=== PATIENT | female | born 1970 | race Caucasian/White ===

== ENCOUNTER 2016-10-11 10:26 | Emergency (ER) | payer OTHER ==
[~2016-10-11] VITALS: Ht 170.2 cm; Wt 104.5 kg
[~2016-10-11 10:26] MED LIST: ASPI81TA3 PO; GEMF600T60 PO; LANT3I SC; LISI-313 PO; MTF1000T PO; NOVO3I SC
[2016-10-11 10:33] VITALS: Ht 170.2 cm; Wt 104.5 kg
[2016-10-11] MEDS ORDERED: RANI150T9 PO (11:53)
[2016-10-11] MEDS ORDERED: BEN25 PO (11:53)
[2016-10-11] MEDS ORDERED: PRED20TA PO (11:53)
--- NOTE | 2016-10-11 11:59 | ERD ---
ER Documentation Chief Complaint Date/Time DATE: 10/11/16 TIME: 11:58 Chief Complaint FACIAL REDNESS,SWELLING AND PAIN HPI 46-year-old female with history of type 2 diabetes comes in with facial redness and swelling after getting a wax done. She had her eyebrows as well as facial hair is wax subsequently left salon yesterday did not experience redness. She denies any shortness of breath, tongue swelling, lip swelling, voice changes or drooling. She denies any new foods, medications, lotions or allergens. This is the same salon that she has been to. ROS All systems reviewed and are negative except as per history of present illness. Medications Home Meds Active Scripts Ranitidine Hcl* (Zantac*) 150 Mg Tablet, 150 MG PO BID Y for EPIGASTRIC PAIN, # 10 TAB Prov:ANMOL DEVI PA-C 10/11/16 Diphenhydramine Hcl* (Benadryl*) 25 Mg Cap, 25 MG PO Q6, #30 CAP Prov:ANMOL DEVI PA-C 10/11/16 Prednisone* (Prednisone*) 20 Mg Tab, 40 MG PO DAILY for 4 Days, TAB Prov:ANMOL DEVI PA-C 10/11/16 Aspirin (Aspirin) 81 Mg Chew, 81 MG PO DAILY for 30 Days, TAB Prov:TEREZA MCKENZIE 06/11/16 Gemfibrozil* (Gemfibrozil*) 600 Mg Tablet, 600 MG PO BID for 30 Days, TAB Prov:TEREZA MCKENZIE 06/11/16 Insulin Glargine* (Lantus*) 100 Unit/Ml Soln, 27 UNIT SC QAM for 30 Days Prov:TEREZA MCKENZIE 06/11/16 Insulin Aspart* (Novolog Insulin Pen*) 100 Unit/Ml Soln, 10 UNIT SC WITH MEALS for 30 Days Prov:TEREZA MCKENZIE 06/11/16 Reported Medications Metformin* (Glucophage*) 1,000 Mg Tablet, 1000 MG PO BID, TAB 06/09/16 Lisinopril* (Lisinopril*) 5 Mg Tablet, 5 MG PO DAILY, TAB 06/09/16 Allergies Allergies: Coded Allergies: No Known Allergy (Unverified , 06/09/16) PMhx/Soc History of Surgery: Yes (Gallblader removed) Anesthesia Reaction: No Hx Neurological Disorder: No Hx Respiratory Disorders: Yes (asthma) Hx Cardiac Disorders: No Hx Psychiatric Problems: No Hx Miscellaneous Medical Probl: No Hx Alcohol Use: Yes (occasionally) Hx Substance Use: No Hx Tobacco Use: No Physical Exam Vitals Vital Signs Date Time Temp Pulse Resp B/P Pulse Ox O2 Delivery O2 Flow Rate FiO2 10/11/16 10:33 98.5 96 18 122/60 98 Physical Exam = General: Well-developed, well-nourished. The patient appears in no acute distress. HEENT: Head is normocephalic, atraumatic. No scleral icterus. Pupils are equal , round, and reactive. Oral mucous membranes are moist. No pharyngeal erythema. Neck: Supple. Nontender. Lungs: Clear to auscultation. Normal air movement. Heart: Regular rate and rhythm. S1 and S2 are normal. No murmurs, gallops, or rubs. Abdomen: Soft, nontender, nondistended. Bowel sounds are normoactive. Extremities: No clubbing or cyanosis. Normal pulses. Moving extremities x 4. No weakness. Neurologic: Alert and oriented 3. No focal deficits. Skin: Erythema, swelling localized to the forehead, and cheeks on the face. Results 24 hrs Current Medications Medications (Trade) Dose Ordered Sig/Sherita Route PRN Reason Start Time Stop Time Status Last Admin Dose Admin Prednisone (Prednisone) 40 mg ONCE ONCE PO 10/11/16 12:00 10/11/16 12:01 Ranitidine HCl (Zantac) 150 mg ONCE ONCE PO 10/11/16 12:00 10/11/16 12:01 Procedures/MDM 46-year-old female comes with contact dermatitis to face from the wax material that she use yesterday. No signs of any edema, persistent systemic response. Her vitals are stable, no edema noted patient will be discharged home. Departure Diagnosis: Primary Impression: Contact dermatitis Condition: Good Patient Instructions: Contact Dermatitis Additional Instructions: Call your primary care doctor TOMORROW for an appointment during the next 1-2 days.See the doctor sooner or return here if your condition worsens before your appointment time. ANMOL DEVI PA-C Oct 11, 2016 11:59
[2016-10-11] MEDS ORDERED: RANITIDINE 150 MG TAB PO ONE (12:00)
[2016-10-11] MEDS ORDERED: predniSONE 20 MG TAB PO ONE (12:00)
== END 2016-10-11 12:17 | disposition home or self-care (01) ==
LOC: FTE 10:26
DX: L25.9 Unspecified contact dermatitis, unspecified cause (principal); J45.909 Unspecified asthma, uncomplicated; E11.9 Type 2 diabetes mellitus without complications; Z79.4 Long term (current) use of insulin; Z79.82 Long term (current) use of aspirin; Z79.84 Long term (current) use of oral hypoglycemic drugs
CPT/HCPCS: J7512; Z7610; 99283

== ENCOUNTER 2017-02-23 07:17 | Emergency (ER) | payer OTHER ==
[~2017-02-23] VITALS: Ht 170.2 cm; Wt 106.0 kg
[~2017-02-23 07:17] MED LIST changes: +BEN25 PO; +GLIP5TAB13 PO; +PRED20TA PO; +RANI150T9 PO
[2017-02-23 07:21] VITALS: Ht 170.2 cm; Wt 106.0 kg
--- NOTE | 2017-02-23 08:07 | ERD ---
ER Documentation Chief Complaint Date/Time DATE: 02/23/17 TIME: 08:06 Chief Complaint sore throat and productive cough with dark green sputum since tuesday HPI 46-year-old female presented emergency department for sore throat, productive cough since Tuesday. Stated that she felt like she had a fever 2 days ago but she never took her temperature. Denies headache, loss of consciousness, dizziness, blurry vision, changes in vision, photophobia, facial pain, ear pain, difficulty swallowing, neck pain, shoulder pain, chest pain, hemoptysis, abdominal pain, back pain, loss of appetite, nausea, vomiting, hematochezia, diarrhea, constipation, urinary symptoms, , the possibility of being , bladder and bowel incontinences, extremity weakness, extremity tenderness, numbness or tingling sensation, difficulty walking, recent travel, recent exposure to illness, recent antibiotic use in the last 3 months, chills. Allergy: NKDA. PMH: Hypertension, diabetes, hyperlipidemia. Family medical history: Denies. with 3 miscarriages. LMP: "2 weeks ago." Medications: Lantus, aspirin, lisinopril, simvastatin, metformin, Humalog insulin. Surgery: Cholecystectomy. 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 Occasional drinks alcoholic beverages. Denies smoking, use of illegal drugs. ROS All systems reviewed and are negative except as per history of present illness. Medications Home Meds Active Scripts Albuterol Sulfate* (Proair HFA*) 8.5 Gm Hfa.aer.ad, 2 PUFF INH Q4, #1 INHALER Prov:ELVIE MELO 02/23/17 Acetaminophen* (Tylophen*) 500 Mg Capsule, 1 CAP PO Q6H Y for PAIN AND OR ELEVATED TEMP, #20 CAP Prov:ELVIE MELO 02/23/17 Ibuprofen* (Motrin*) 800 Mg Tab, 800 MG PO Q8 Y for PAIN AND OR ELEVATED TEMP, # 30 TAB Prov:ELVIE MELO 02/23/17 Azithromycin* (Zithromax*) 250 Mg Tablet, 250 MG PO .GretchenPACK DIRECTED, #6 TAB TAKE 500 MG (2 TABS) THE FIRST DAY THEN 250 MG (1 TAB) DAYS 2-5 Prov:ELVIE MELO 02/23/17 Ranitidine Hcl* (Zantac*) 150 Mg Tablet, 150 MG PO BID Y for EPIGASTRIC PAIN, # 10 TAB Prov:ANMOL DEVI PA-C 10/11/16 Diphenhydramine Hcl* (Benadryl*) 25 Mg Cap, 25 MG PO Q6, #30 CAP Prov:ANMOL DEVI PA-C 10/11/16 Prednisone* (Prednisone*) 20 Mg Tab, 40 MG PO DAILY for 4 Days, TAB Prov:ANMOL DEVI PA-C 10/11/16 Aspirin (Aspirin) 81 Mg Chew, 81 MG PO DAILY for 30 Days, TAB Prov:TEREZA MCKENZIE 06/11/16 Gemfibrozil* (Gemfibrozil*) 600 Mg Tablet, 600 MG PO BID for 30 Days, TAB Prov:TEREZA MCKENZIE 06/11/16 Insulin Glargine* (Lantus*) 100 Unit/Ml Soln, 27 UNIT SC QAM for 30 Days Prov:TEREZA MCKENZIE 06/11/16 Insulin Aspart* (Novolog Insulin Pen*) 100 Unit/Ml Soln, 10 UNIT SC WITH MEALS for 30 Days Prov:TEREZA MCKENZIE 06/11/16 Reported Medications Metformin* (Glucophage*) 1,000 Mg Tablet, 1000 MG PO BID, TAB 06/09/16 Lisinopril* (Lisinopril*) 5 Mg Tablet, 5 MG PO DAILY, TAB 06/09/16 Allergies Allergies: Coded Allergies: No Known Allergy (Unverified , 02/23/17) PMhx/Soc History of Surgery: Yes (Gallblader removed) Anesthesia Reaction: No Hx Neurological Disorder: No Hx Respiratory Disorders: Yes (asthma) Hx Cardiac Disorders: No Hx Psychiatric Problems: No Hx Miscellaneous Medical Probl: No Hx Alcohol Use: Yes (occasionally) Hx Substance Use: No Hx Tobacco Use: No Smoking Status: Never smoker Physical Exam Vitals Vital Signs Date Time Temp Pulse Resp B/P Pulse Ox O2 Delivery O2 Flow Rate FiO2 02/23/17 07:21 99.2 90 19 140/66 96 Physical Exam CONSTITUTIONAL: Well-appearing; well-nourished; in no apparent distress. HEAD: Normocephalic; atraumatic. EYES: Conjunctiva clear, sclera non-icteric, EOM intact. PERRL Ears: Hearing intact. EACs clear, TMs non-bulging, non-inflamed, translucent & mobile, ossicles normal appearance, No obstructions, no erythema, no discharges Nose: No obstructions. No polyps. No external lesions. Mucosa non-inflamed. No external lesions, septum and turbinates normal. No rhinorrhea. No discharges. Frontal sinus is non-tender to palpation. Maxillary sinus is non-tender to palpation. MOUTH: Moist mucous membranes, no lesion, no obstructions, no vesicles, no thrush, patent airway Throat: Uvula in midline. Right tonsil is +1 with no erythema, no exudate. Left tonsil is +1 with no erythema, no exudate. Tolerating secretions well. Good gag reflex. Patent airway. Neck: Supple, without lesions, bruits, or adenopathy. No mass. Thyroid non- enlarged and non-tender to palpation. CHEST: Symmetrical chest. Respirations even and not labored. No retractions noted. CARDIOVASCULAR: Normal S1, S2. RRR. No murmurs, gallops. RESPIRATORY: Normal chest excursion with respiration; breath sounds clear and equal bilaterally; no wheezes, rhonchi, or rales. Breathing even and unlabored. Speaking in clear, full, and complete sentences w/ ease. ABDOMEN: Normal bowel sounds normal. Soft, round, non-distended, non-guarding, no tenderness, no rebound, no organomegaly, no masses, no pulsating abdominal mass. No hernia. No peritoneal signs. : No CVA tenderness. BACK: Symmetrical shoulder. Spine is midline without deformity, tenderness. No evidence of trauma or deformity. PELVIS: Stable pelvis. No evidence of trauma or deformity. MUSCULOSKELETAL: Normal gait and station. No misalignment, asymmetry, crepitation, defects, tenderness, masses, effusions, decreased range of motion, instability, atrophy or abnormal strength or tone in the head, neck, spine, ribs , pelvis or extremities. No calf tenderness. NEUROVASCULAR: Distal pulses are present. Pedal pulse are present, equal, and normal. Capillary refills are < 2 seconds. NEUROLOGIC: Alert and oriented x4. Speaks full and clear sentences. Cranial Nerves II-XII normal. Sensation to pain, touch, and proprioception normal. Grossly unremarkable. No neurologic deficits. Romberg test is negative. PSYCHOLOGICAL: The patients mood and manner are appropriate. No hallucinations , delusions. Not SI. Not HI. Has the capacity to decide for self SKIN: Normal for age and ethnicity; warm; dry; good turgor; no apparent lesions or exudates. No rashes, hives, discoloration. Intact. Procedures/MDM Examination: Please see physical examination. Disease process, medical treatment was explained to the patient and family member. They verbalized understanding and agreed with the diagnostic tests, medical treatment, and follow-up care. Reevaluation: Alert and oriented 4. Speaks full and clear sentences. Denies headache, dizziness, blurred vision, neck pain, throat pain, difficulty swallowing, shoulder pain, chest pain, nausea. No episode of emesis in the emergency department. Respirations even and unlabored. Lungs are clear to auscultation. There is no abdominal tenderness. No neurovascular deficits. No neurological deficits. Differential diagnosis: Pneumonia versus bronchitis versus upper respiratory infection versus strep throat versus viral syndrome Medical decision makin-year-old female presented emergency department for sore throat, productive cough since Tuesday. Stated that she felt like she had a fever 2 days ago but she never took her temperature. Patient's complaint , patient's history about her complaint, my physical findings, my reevaluation are consistent with final diagnosis of bronchitis. Medications prescribed are the following: Azithromycin. Tylenol. Motrin. Pro- air. Patient and family member are made aware of the side effects and adverse reactions of the medications prescribed. Instructed on when to seek emergent and medical attention in case allergic/anaphylactic reactions or severe side effects and or adverse reactions to medications. Patient and family member verbalized understanding. Patient instructed Instructed to follow-up with his PCP in 24-48 hours. Instructed to Call 911 for chest pain, shortness of breath. Advised to come back here in ED as soon as possible for severity of symptoms which includes but not limited to: any new symptoms; shortness of breath/difficulty of breathing; cardiovascular changes; severe gastrointestinal symptoms; signs and symptoms of bleeding and or infection; signs of compartment syndrome/neurovascular changes; neurological changes/deficits. Patient and family member verbalized understanding. Upon discharge, patient is alert and oriented x 4, speaks full and clear sentences, denies pain, has no neurological deficits, has no neurovascular deficits, difficulty of breathing. Breathing even and unlabored. Lung sounds are clear to auscultation. Not in distress. Appears comfortable. Ambulatory with steady gait. Appears satisfied with care provided here in ED. Departure Diagnosis: Primary Impression: Acute bronchitis Condition: Good Additional Instructions: Instructed to follow-up with his PCP in 24-48 hours. Instructed to Call 911 for chest pain, shortness of breath. Advised to come back here in ED as soon as possible for severity of symptoms which includes but not limited to: any new symptoms; shortness of breath/difficulty of breathing; cardiovascular changes; severe gastrointestinal symptoms; signs and symptoms of bleeding and or infection; signs of compartment syndrome/neurovascular changes; neurological changes/deficits. Patient and family member verbalized understanding. ELVIE MELO Feb 23, 2017 08:07
[2017-02-23] MEDS ORDERED: AZIT250T94 PO (08:10)
[2017-02-23] MEDS ORDERED: ACET500C5 PO (08:11)
[2017-02-23] MEDS ORDERED: IBUP800T25 PO (08:11)
[2017-02-23] MEDS ORDERED: ALBU8.5H3 INH (08:12)
== END 2017-02-23 08:19 | disposition home or self-care (01) ==
LOC: FTE 07:17
DX: J20.9 Acute bronchitis, unspecified (principal); J45.909 Unspecified asthma, uncomplicated; E11.9 Type 2 diabetes mellitus without complications; I10 Essential (primary) hypertension; Z79.4 Long term (current) use of insulin; Z79.82 Long term (current) use of aspirin; Z79.84 Long term (current) use of oral hypoglycemic drugs
CPT/HCPCS: 99284

== ENCOUNTER 2017-03-08 20:49 | Emergency (ER) | payer OTHER ==
[~2017-03-08] VITALS: Ht 162.6 cm; Wt 106.5 kg
[~2017-03-08 20:49] MED LIST changes: +ACET500C5 PO; +ALBU8.5H3 INH; +AZIT250T94 PO; -GLIP5TAB13 PO; +IBUP800T25 PO
[2017-03-08 20:53] VITALS: Ht 162.6 cm; Wt 106.5 kg
[2017-03-08] MEDS ORDERED: PRED20TA PO (22:14)
--- NOTE | 2017-03-08 22:18 | ERD ---
ER Documentation Chief Complaint Date/Time DATE: 03/08/17 TIME: 22:16 Chief Complaint cough x 2 weeks HPI This a 46-year-old female who is complaining of a cough for 2 weeks. She was seen here at the onset of the illness and she was given a Z-Kiran and inhaler. She says she is only use the inhaler a few times. She says she took a Z-Kiran and her sputum became green to a light summers color now. She has no fevers but she says she is having off-and-on chills. No chest pain or shortness of breath. She is diabetic and her blood sugars been running between 130 and 140. ROS All systems reviewed and are negative except as per history of present illness. Medications Home Meds Active Scripts Prednisone* (Prednisone*) 20 Mg Tab, 40 MG PO DAILY for 4 Days, TAB Prov:NATHANIEL EDEN DO 03/08/17 Albuterol Sulfate* (Proair HFA*) 8.5 Gm Hfa.aer.ad, 2 PUFF INH Q4, #1 INHALER Prov:ELVIE MELO 02/23/17 Acetaminophen* (Tylophen*) 500 Mg Capsule, 1 CAP PO Q6H Y for PAIN AND OR ELEVATED TEMP, #20 CAP Prov:ELVIE MELO 02/23/17 Ibuprofen* (Motrin*) 800 Mg Tab, 800 MG PO Q8 Y for PAIN AND OR ELEVATED TEMP, # 30 TAB Prov:KAMERONHUMBLESU Peres 02/23/17 Azithromycin* (Zithromax*) 250 Mg Tablet, 250 MG PO .GretchenPACK DIRECTED, #6 TAB TAKE 500 MG (2 TABS) THE FIRST DAY THEN 250 MG (1 TAB) DAYS 2-5 Prov:ELVIE MELO 02/23/17 Ranitidine Hcl* (Zantac*) 150 Mg Tablet, 150 MG PO BID Y for EPIGASTRIC PAIN, # 10 TAB Prov:ANMOL DEVI PA-C 10/11/16 Diphenhydramine Hcl* (Benadryl*) 25 Mg Cap, 25 MG PO Q6, #30 CAP Prov:ANMOL DEVI PA-C 10/11/16 Prednisone* (Prednisone*) 20 Mg Tab, 40 MG PO DAILY for 4 Days, TAB Prov:ANMOL DEVI PA-C 10/11/16 Aspirin (Aspirin) 81 Mg Chew, 81 MG PO DAILY for 30 Days, TAB Prov:REGIDOTEREZA Heck 06/11/16 Gemfibrozil* (Gemfibrozil*) 600 Mg Tablet, 600 MG PO BID for 30 Days, TAB Prov:REGIDORTEREZA 06/11/16 Insulin Glargine* (Lantus*) 100 Unit/Ml Soln, 27 UNIT SC QAM for 30 Days Prov:TEREZA MCKENZIE 06/11/16 Insulin Aspart* (Novolog Insulin Pen*) 100 Unit/Ml Soln, 10 UNIT SC WITH MEALS for 30 Days Prov:TEREZA MCKENZIE 06/11/16 Reported Medications Metformin* (Glucophage*) 1,000 Mg Tablet, 1000 MG PO BID, TAB 06/09/16 Lisinopril* (Lisinopril*) 5 Mg Tablet, 5 MG PO DAILY, TAB 06/09/16 Allergies Allergies: Coded Allergies: No Known Allergy (Unverified , 02/23/17) PMhx/Soc History of Surgery: Yes (Gallblader, gallstones removed) Anesthesia Reaction: No Hx Neurological Disorder: No Hx Respiratory Disorders: Yes (asthma, bronchitis) Hx Cardiac Disorders: No Hx Psychiatric Problems: No Hx Miscellaneous Medical Probl: No Hx Alcohol Use: Yes (occasionally) Hx Substance Use: No Hx Tobacco Use: No Smoking Status: Never smoker FmHx Family History: No coronary disease Physical Exam Vitals Vital Signs Date Time Temp Pulse Resp B/P Pulse Ox O2 Delivery O2 Flow Rate FiO2 03/08/17 20:53 98.6 122 20 133/57 98 Physical Exam Const: Well-developed, well-nourished Head: Atraumatic, normocephalic Eyes: Normal Conjunctiva, PERRLA, EOMI, normal sclera, no nystagmus ENT: Normal External Ears, Nose and Mouth, moist mucus membranes. Neck: Full range of motion. No meningismus, no lymphadenopathy. Resp: Clear to auscultation bilaterally, no wheezing, rhonchi, rales Cardio: Regular rate and rhythm, no murmurs, S1 S2 present Abd: Soft, non tender x 4, non distended. Normal bowel sounds, no guarding or rebound, no pulsitile abdominal masses or bruits Skin: No petechiae or rashes, no ecchymosis , no maculopapular rash Back: No midline or flank tenderness Ext: No cyanosis, or edema, FROM x 4, normal inspection, neurovascularly intact x 4 Neur: Awake and alert, STR 5/5 x 4, sensation intact x 4, no focal findings, cerebellum intact Psych: Normal Mood and Affect Procedures/MDM Patient likely has a viral illness I will not use antibiotics again but uses low -dose prednisone and have her use her inhaler every 4 hours for the next few days. Departure Diagnosis: Primary Impression: Acute bronchitis Bronchitis organism: unspecified organism Qualified Code: J20.9 - Acute bronchitis, unspecified organism Condition: Stable Patient Instructions: What Is Bronchitis? Referrals: [facility] (PCP) NATHANIEL EDEN DO Mar 08, 2017 22:17
== END 2017-03-08 22:40 | disposition home or self-care (01) ==
LOC: FTE 20:49
DX: J20.9 Acute bronchitis, unspecified (principal); E11.9 Type 2 diabetes mellitus without complications; J45.909 Unspecified asthma, uncomplicated; Z79.84 Long term (current) use of oral hypoglycemic drugs; Z79.4 Long term (current) use of insulin; Z79.82 Long term (current) use of aspirin
CPT/HCPCS: 99283

== ENCOUNTER 2017-03-10 17:41 | Emergency (ER) | payer OTHER ==
[~2017-03-10] VITALS: Ht 172.7 cm; Wt 10.0 kg
[2017-03-10 17:46] VITALS: Ht 172.7 cm; Wt 10.0 kg
[2017-03-10] MEDS ORDERED: MECLIZINE 12.5 MG TAB PO ONE (19:30)
[2017-03-10 19:35] LABS: ADD UMIC YES; UR ASCORBIC ACID NEGATIVE (NEGATIVE); UR BACTERIA FEW /HPF (NONE SEEN); UR BILIRUBIN (Dip) NEGATIVE (NEGATIVE); UR BLOOD (Dip) 2+ mg/dL (NEGATIVE); UR CLARITY CLEAR (CLEAR); UR COLOR STRAW (YELLOW); UR GLUCOSE (Dip) 3+ mg/dL (NEGATIVE); UR KETONES (Dip) 1+ mg/dL (NEGATIVE); UR LEUKOCYTE ESTERASE (Dip) 1+ Leu/ul (NEGATIVE); UR NITRITE (Dip) NEGATIVE (NEGATIVE); UR RBC 1 /HPF (0-5); UR SPECIFIC GRAVITY (Dip) 1.008 (1.003-1.030); UR SQUAMOUS EPITHELIAL CELL FEW /HPF (FEW); UR TOTAL PROTEIN (Dip) NEGATIVE (NEGATIVE); UR UROBILINOGEN (Dip) NEGATIVE (NEGATIVE)
[2017-03-10 19:42] LABS: BASOPHIL # 0.1 10^3/ul (0.0-0.1); BASOPHILS % 0.8 % (0.0-2.0); EOSINOPHILS # 0.1 10^3/ul (0.0-0.5); EOSINOPHILS % 1.2 % (0.0-7.0); HEMATOCRIT 42.1 % (37.0-47.0); HEMOGLOBIN 14.1 g/dl (12.0-16.0); LYMPHOCYTES # 2.5 10^3/ul (0.8-2.9); MEAN CORPUSCULAR HEMOGLOBIN 26.7 pg (29.0-33.0); MEAN CORPUSCULAR HGB CONC 33.5 g/dl (32.0-37.0); MEAN CORPUSCULAR VOLUME 79.6 fl (82.0-101.0); MEAN PLATELET VOLUME 10.8 fl (7.4-10.4); MONOCYTE # 0.5 10^3/ul (0.3-0.9); MONOCYTES % 5.4 % (0.0-11.0); NEUTROPHIL # 6.6 10^3/ul (1.6-7.5); NEUTROPHILS % 66.9 % (39.0-77.0); PLATELET COUNT 444 10^3/UL (140-415); RED BLOOD COUNT 5.29 10^6/ul (4.20-5.40); RED CELL DISTRIBUTION WIDTH 13.5 % (11.5-14.5); WHITE BLOOD COUNT 9.8 10^3/ul (4.8-10.8)
[2017-03-10 20:01] LABS: ALBUMIN 4.9 g/dl (3.3-4.9); ALBUMIN/GLOBULIN RATIO 1.48; BILIRUBIN,INDIRECT 0.5 mg/dl (0-1.1); BILIRUBIN,TOTAL 0.5 mg/dl (0.2-1.3); CALCIUM 10.2 mg/dl (8.4-10.2); CREATININE 0.53 mg/dl (0.44-1.00); POTASSIUM 3.9 mmol/L (3.5-5.1); TOTAL PROTEIN 8.2 g/dl (6.1-8.1)
[2017-03-10] MEDS ORDERED: CEPH-443 PO (20:10)
[2017-03-10] MEDS ORDERED: MECL12.574 PO (20:10)
[2017-03-10 20:45] VITALS: BP 132/62; PULSE 90; RESP 18; TEMP 98.4
--- NOTE | 2017-03-10 23:26 | ERD ---
ER Documentation Chief Complaint Date/Time DATE: 03/10/17 TIME: 23:23 Chief Complaint Complains of dizziness HPI This patient is a 46-year-old female presenting to the emergency department with complaints of vertigo which began today. She states she felt it earlier today and then drove to the hospital. As she was getting out of her car at the hospital she felt an episode of "the world spinning." She was then helped out by security intern of the hospital and was brought into the emergency department by wheelchair. She states her feelings of vertigo have currently resolved. She did recently have bronchitis but the symptoms have resolved as well. She denies nausea, vomiting, diarrhea, fevers, loss of consciousness, head injury, or other symptoms currently. ROS All systems reviewed and are negative except as per history of present illness. Medications Home Meds Active Scripts Meclizine Hcl* (Antivert*) 12.5 Mg Tab, 12.5 MG PO Q6H Y for DIZZINESS, #20 TAB Prov:ROMEL PATINO PA-C 03/10/17 Cephalexin* (Keflex*) 500 Mg Capsule, 500 MG PO TID for 7 Days, #21 CAP Prov:ROMEL PATINO PA-C 03/10/17 Prednisone* (Prednisone*) 20 Mg Tab, 40 MG PO DAILY for 4 Days, TAB Prov:NATHANIEL EDEN DO 03/08/17 Albuterol Sulfate* (Proair HFA*) 8.5 Gm Hfa.aer.ad, 2 PUFF INH Q4, #1 INHALER Prov:ELVIE MELO 02/23/17 Acetaminophen* (Tylophen*) 500 Mg Capsule, 1 CAP PO Q6H Y for PAIN AND OR ELEVATED TEMP, #20 CAP Prov:ELVIE MELO 02/23/17 Ibuprofen* (Motrin*) 800 Mg Tab, 800 MG PO Q8 Y for PAIN AND OR ELEVATED TEMP, # 30 TAB Prov:ELVIE MELO 02/23/17 Azithromycin* (Zithromax*) 250 Mg Tablet, 250 MG PO .SANTI DIRECTED, #6 TAB TAKE 500 MG (2 TABS) THE FIRST DAY THEN 250 MG (1 TAB) DAYS 2-5 Prov:ELVIE MELO 02/23/17 Ranitidine Hcl* (Zantac*) 150 Mg Tablet, 150 MG PO BID Y for EPIGASTRIC PAIN, # 10 TAB Prov:ANMOL DEVI PA-C 10/11/16 Diphenhydramine Hcl* (Benadryl*) 25 Mg Cap, 25 MG PO Q6, #30 CAP Prov:ANMOL DEVI PA-C 10/11/16 Prednisone* (Prednisone*) 20 Mg Tab, 40 MG PO DAILY for 4 Days, TAB Prov:ANMOL DEVI PA-C 10/11/16 Aspirin (Aspirin) 81 Mg Chew, 81 MG PO DAILY for 30 Days, TAB Prov:TEREZA MCKENZIE 06/11/16 Gemfibrozil* (Gemfibrozil*) 600 Mg Tablet, 600 MG PO BID for 30 Days, TAB Prov:TEREZA MCKENZIE 06/11/16 Insulin Glargine* (Lantus*) 100 Unit/Ml Soln, 27 UNIT SC QAM for 30 Days Prov:TEREZA MCKENZIE 06/11/16 Insulin Aspart* (Novolog Insulin Pen*) 100 Unit/Ml Soln, 10 UNIT SC WITH MEALS for 30 Days Prov:TEREZA MCKENZIE 06/11/16 Reported Medications Metformin* (Glucophage*) 1,000 Mg Tablet, 1000 MG PO BID, TAB 06/09/16 Lisinopril* (Lisinopril*) 5 Mg Tablet, 5 MG PO DAILY, TAB 06/09/16 Allergies Allergies: Coded Allergies: No Known Allergy (Unverified , 02/23/17) PMhx/Soc Medical and Surgical Hx: pt denies Medical Hx, pt denies Surgical Hx History of Surgery: Yes (Gallblader, gallstones removed) Anesthesia Reaction: No Hx Neurological Disorder: No Hx Respiratory Disorders: Yes (asthma, bronchitis) Hx Cardiac Disorders: No Hx Psychiatric Problems: No Hx Miscellaneous Medical Probl: No Hx Alcohol Use: Yes (occasionally) Hx Substance Use: No Hx Tobacco Use: No Smoking Status: Never smoker Physical Exam Vitals Vital Signs Date Time Temp Pulse Resp B/P Pulse Ox O2 Delivery O2 Flow Rate FiO2 03/10/17 20:45 98.4 99 18 132/62 99 Room Air 90 03/10/17 19:21 94 128/67 90 141/68 98 144/68 03/10/17 17:46 98.4 107 20 176/82 99 Physical Exam Const: Nontoxic, well-appearing female in no acute distress. Head: Atraumatic Eyes: Normal Conjunctiva ENT: Normal External Ears, Nose and Mouth. Neck: Full range of motion..~ No meningismus. Resp: Clear to auscultation bilaterally Cardio: Regular rate and rhythm, no murmurs Abd: Soft, non tender, non distended. Normal bowel sounds Skin: No petechiae or rashes Back: No midline or flank tenderness Ext: No cyanosis, or edema Neur: Awake and alert. Negative Romberg's test. Cranial nerves intact. Strength and sensation intact in bilateral upper and lower extremity's. No pronator drift noted. Psych: Normal Mood and Affect Result Diagram: 03/10/17192903/10/171929 Results 24 hrs Laboratory Tests Test 03/10/17 18:18 03/10/17 19:30 Urine Color STRAW Urine Clarity CLEAR Urine pH 7.0 Urine Specific [place] 1.008 Urine Ketones 1+mg/dL Urine Nitrite NEGATIVEmg/dL Urine Bilirubin NEGATIVEmg/dL Urine Urobilinogen NEGATIVEmg/dL Urine Leukocyte Esterase 1+Kris/ul Urine Microscopic RBC 1/HPF Urine Microscopic WBC 7/HPF Urine Squamous Epithelial Cells FEW/HPF Urine Bacteria FEW/HPF Urine Hemoglobin 2+mg/dL Urine Glucose 3+mg/dL Urine Total Protein NEGATIVEmg/dl White Blood Count 9.810^3/ul Red Blood Count 5.2910^6/ul Hemoglobin 14.1g/dl Hematocrit 42.1% Mean Corpuscular Volume 79.6fl Mean Corpuscular Hemoglobin 26.7pg Mean Corpuscular Hemoglobin Concent 33.5g/dl Red Cell Distribution Width 13.5% Platelet Count 45313^3/UL Mean Platelet Volume 10.8fl Neutrophils % 66.9% Lymphocytes % 25.0% Monocytes % 5.4% Eosinophils % 1.2% Basophils % 0.8% Nucleated Red Blood Cells % 0.0/100WBC Neutrophils # 6.610^3/ul Lymphocytes # 2.510^3/ul Monocytes # 0.510^3/ul Eosinophils # 0.110^3/ul Basophils # 0.110^3/ul Nucleated Red Blood Cells # 0.010^3/ul Sodium Level 136mmol/L Potassium Level 3.9mmol/L Chloride Level 99mmol/L Carbon Dioxide Level 27mmol/L Anion Gap 14 Blood Urea Nitrogen 11mg/dl Creatinine 0.53mg/dl Glucose Level 112mg/dl Calcium Level 10.2mg/dl Total Bilirubin 0.5mg/dl Direct Bilirubin 0.00mg/dl Indirect Bilirubin 0.5mg/dl Aspartate Amino Transf (AST/SGOT) 20IU/L Alanine Aminotransferase (ALT/SGPT) 43IU/L Alkaline Phosphatase 120IU/L Total Protein 8.2g/dl Albumin 4.9g/dl Globulin 3.30g/dl Albumin/Globulin Ratio 1.48 Current Medications Medications (Trade) Dose Ordered Sig/Sherita Route PRN Reason Start Time Stop Time Status Last Admin Dose Admin Meclizine HCl (Antivert) 12.5 mg ONCE ONCE PO 03/10/17 19:30 03/10/17 19:31 DC 03/10/17 19:24 Procedures/MDM EMERGENCY DEPARTMENT COURSE / MEDICAL DECISION MAKING: This is a 46-year-old female who comes to the emergency room secondary to complaints of vertigo. The patient was given p.o. meclizine in the department. On re-evaluation, the patient was feeling improved. EKG: Interpreted by Dr. José Manuel Hollis, attending ED physician. Rate/Rhythm: Normal sinus rhythm with a rate of [address] bpm[address] QRS, ST, T-waves: No changes consistent w/ acute ischemia Impression: No evidence of ischemia or arrhythmia Lab results reviewed. CBC: No significant acute abnormalities. Chemistry: No significant acute abnormalities. UA: Concerning for mild urinary tract infection. Orthostatic vital signs: Within normal limits. The primary diagnosis is urinary tract infection. Secondary diagnosis is dizziness I have low suspicion for intracranial hemorrhage, intracranial mass, CVA, TIA, or other emergent conditions at this time. Dizziness may be secondary to urinary tract infection, or unknown etiology. She is to follow-up closely with her primary care physician for further workup as an outpatient. Life- threatening emergencies were ruled out in the department with the workup. Discharge: I have discussed the lab results and diagnostic findings with the patient and answered any questions or concerns. The patient was discharged with a prescription for meclizine. The patient was advised to followup with their PMD in 1-2 days and to return to the Emergency Department if there are any new or worsening symptoms. The patient understood and agreed with the diagnosis, treatment and plan. The patient is stable for discharge at this time. Departure Diagnosis: Primary Impression: Urinary tract infection Additional Impression: Dizziness Condition: Fair Patient Instructions: Understanding Urinary Tract Infections (UTIs), Inner Ear Problems: Causes of Dizziness (Vertigo), Dizziness (Vertigo) and Balance Problems: Ensuring Your Safety Additional Instructions: Follow up with your PCP within the next 1-3 days for a repeat evaluation and a possible referral to a specialist, if required. Return the the emergency department immediately if symptoms worsen or change. If you have any questions regarding medications, ask your pharmacist or us before you leave. If any adverse reactions, occur while taking your medications, discontinue the treatment and return to the emergency department immediately. If any new or worsening symptoms, uncontrolled fevers, or other unexplained symptoms occur, return to the emergency department immediately. Take your medications as directed, and complete the entire course of treatment. ROMEL APTINO PA-C Mar 10, 2017 23:26
== END 2017-03-10 20:46 | disposition home or self-care (01) ==
LOC: FTE 17:41
DX: N39.0 Urinary tract infection, site not specified (principal); J45.909 Unspecified asthma, uncomplicated; E11.9 Type 2 diabetes mellitus without complications; Z79.4 Long term (current) use of insulin; Z79.82 Long term (current) use of aspirin; Z79.84 Long term (current) use of oral hypoglycemic drugs
CPT/HCPCS: 36415; 80053; 81001; 85025; 87086; 93005; Z7502; Z7610

== ENCOUNTER 2017-05-18 08:43 | Emergency (ER) | payer OTHER ==
[~2017-05-18] VITALS: Ht 170.2 cm; Wt 106.5 kg
[~2017-05-18 08:43] MED LIST changes: +CEPH-443 PO; +MECL12.574 PO
[2017-05-18 08:51] VITALS: Ht 170.2 cm; Wt 106.5 kg
[2017-05-18] MEDS ORDERED: LORA1TAB54 PO (09:35)
[2017-05-18] MEDS ORDERED: AMOX1TAB9 PO (09:35)
--- NOTE | 2017-05-18 09:38 | ERD ---
ER Documentation Chief Complaint Date/Time DATE: 05/18/17 TIME: 09:37 Chief Complaint bilateral ear pain with sore throat fever for 4 days HPI 47-year-old female presents the emergency department complaining of upper respiratory nasal congestion, sinus congestion, low-grade fever and, bilateral ear pain for the last 4 days. She reports cough with no difficulty breathing. ROS All systems reviewed and are negative except as per history of present illness. Medications Home Meds Active Scripts Amoxicillin/Potassium Clav (Amox-Clav 500-125 mg Tablet) 500-125 mg Tab, 1 TAB PO BID for 7 Days, #14 TAB Prov:GLADIS MCARTHUR 05/18/17 Loratadine/Pseudoephedrine* (Claritin-D* 12 Hr) 5-120 Mg Tab.er.12h, 1 TAB PO Q12, #60 TAB.SA Prov:GLADIS MCARTHUR 05/18/17 Meclizine Hcl* (Antivert*) 12.5 Mg Tab, 12.5 MG PO Q6H Y for DIZZINESS, #20 TAB Prov:ROMEL PATINO PA-C 03/10/17 Cephalexin* (Keflex*) 500 Mg Capsule, 500 MG PO TID for 7 Days, #21 CAP Prov:ROMEL PATINO PA-C 03/10/17 Prednisone* (Prednisone*) 20 Mg Tab, 40 MG PO DAILY for 4 Days, TAB Prov:NATHANIEL EDEN DO 03/08/17 Albuterol Sulfate* (Proair HFA*) 8.5 Gm Hfa.aer.ad, 2 PUFF INH Q4, #1 INHALER Prov:ELVIE MELO 02/23/17 Acetaminophen* (Tylophen*) 500 Mg Capsule, 1 CAP PO Q6H Y for PAIN AND OR ELEVATED TEMP, #20 CAP Prov:ELVIE MELO 02/23/17 Ibuprofen* (Motrin*) 800 Mg Tab, 800 MG PO Q8 Y for PAIN AND OR ELEVATED TEMP, # 30 TAB Prov:ELVIE MELO 02/23/17 Azithromycin* (Zithromax*) 250 Mg Tablet, 250 MG PO .SANTI DIRECTED, #6 TAB TAKE 500 MG (2 TABS) THE FIRST DAY THEN 250 MG (1 TAB) DAYS 2-5 Prov:ELVIE MELO 02/23/17 Ranitidine Hcl* (Zantac*) 150 Mg Tablet, 150 MG PO BID Y for EPIGASTRIC PAIN, # 10 TAB Prov:ANMOL DEVI PA-C 10/11/16 Diphenhydramine Hcl* (Benadryl*) 25 Mg Cap, 25 MG PO Q6, #30 CAP Prov:ANMOL DEVI PA-C 10/11/16 Prednisone* (Prednisone*) 20 Mg Tab, 40 MG PO DAILY for 4 Days, TAB Prov:ANMOL DEVI PA-C 10/11/16 Aspirin (Aspirin) 81 Mg Chew, 81 MG PO DAILY for 30 Days, TAB Prov:REGTEREZA RANKIN 06/11/16 Gemfibrozil* (Gemfibrozil*) 600 Mg Tablet, 600 MG PO BID for 30 Days, TAB Prov:TEREZA MCKENZIE 06/11/16 Insulin Glargine* (Lantus*) 100 Unit/Ml Soln, 27 UNIT SC QAM for 30 Days Prov:TEREZA MCKENZIE 06/11/16 Insulin Aspart* (Novolog Insulin Pen*) 100 Unit/Ml Soln, 10 UNIT SC WITH MEALS for 30 Days Prov:TEREZA MCKENZIE 06/11/16 Reported Medications Metformin* (Glucophage*) 1,000 Mg Tablet, 1000 MG PO BID, TAB 06/09/16 Lisinopril* (Lisinopril*) 5 Mg Tablet, 5 MG PO DAILY, TAB 06/09/16 Allergies Allergies: Coded Allergies: No Known Allergy (Unverified , 05/18/17) PMhx/Soc History of Surgery: Yes (Gallblader, gallstones removed) Anesthesia Reaction: No Hx Neurological Disorder: No Hx Respiratory Disorders: Yes (asthma, bronchitis) Hx Cardiac Disorders: No Hx Psychiatric Problems: No Hx Miscellaneous Medical Probl: No Hx Alcohol Use: Yes (occasionally) Hx Substance Use: No Hx Tobacco Use: No FmHx Noncontributory for chief complaint Physical Exam Vitals Vital Signs Date Time Temp Pulse Resp B/P Pulse Ox O2 Delivery O2 Flow Rate FiO2 05/18/17 08:51 98.1 86 18 148/75 98 Physical Exam GENERAL: The patient is well developed and appropriate for usual state of health in no apparent distress HEENT: Pupils equal, round, and reactive to light. EOMI. There is no scleral icterus. Patient is a bilateral otitis media with the right worse than the left NECK: C-spine is soft and supple, there is no meningismus. There is no cervical lymphadenopathy. LUNGS: Clear to auscultation bilaterally. There are no rales, wheezes or rhonchi. HEART: Regular rate and rhythm, no murmurs, clicks, rubs or gallops. Procedures/MDM Patient was taken to a room, seen and examined Medical decision makin-year-old diabetic female presents to the emergency department with sinusitis and bilateral otitis media. Given her diabetes, she will be placed on antibiotics. At this time, she appears to be nontoxic and appropriate for outpatient supportive care. Departure Diagnosis: Primary Impression: Otitis media Additional Impression: Sinusitis Condition: Stable Patient Instructions: Otitis Media, Abx Tx (Adult) Additional Instructions: Please watch your blood sugar carefully. See your doctor if not better in the next 2 days. Return for any concerns GLADIS MCARTHUR May 18, 2017 09:38
== END 2017-05-18 10:15 | disposition home or self-care (01) ==
LOC: FTE 08:43
DX: H66.93 Otitis media, unspecified, bilateral (principal); J32.9 Chronic sinusitis, unspecified; J45.909 Unspecified asthma, uncomplicated; Z79.4 Long term (current) use of insulin; Z79.82 Long term (current) use of aspirin; Z79.84 Long term (current) use of oral hypoglycemic drugs
CPT/HCPCS: 99283

== ENCOUNTER 2017-07-23 15:41 | Emergency (ER) | payer OTHER ==
[~2017-07-23] VITALS: Ht 157.5 cm; Wt 107.2 kg
[~2017-07-23 15:41] MED LIST changes: +AMOX1TAB9 PO; +LORA1TAB54 PO
[2017-07-23 15:45] VITALS: Ht 157.5 cm; Wt 107.2 kg
[2017-07-23] MEDS ORDERED: LIDOCAINE 1% (MDV) 20 ML INJ SC ONE (16:00)
[2017-07-23] MEDS ORDERED: IBUP-1542 PO (17:33)
[2017-07-23] MEDS ORDERED: CEPH-443 PO (17:33)
[2017-07-23] MEDS ORDERED: SULF1TAB31 PO (17:33)
--- NOTE | 2017-07-23 18:19 | ERD ---
ER Documentation Chief Complaint Chief Complaint Complains of abscess to the groin HPI 47-year-old female patient with a past medical history of diabetes presents to the ED complaining of abscess in the left side of her groin. Reports that she noticed it 3 days ago. States that it feels like it is getting bigger. Denies any fever, chills, nausea, vomiting, diarrhea, abdominal pain, melena, bloody stools, hematemesis. Denies any dysuria, urgency, frequency, hematuria, vaginal discharge. ROS All systems reviewed and are negative except as per history of present illness. Medications Home Meds Active Scripts Ibuprofen* (Motrin*) 600 Mg Tab, 600 MG PO Q6, #30 TAB Prov:RAPHAEL FERREIRA PA-C 07/23/17 Sulfamethoxazole/Trimethoprim* (Bactrim Ds* Tablet) 1 Each Tablet, 1 TAB PO BID for 7 Days, #14 TAB Prov:RAPHAEL FERREIRA PA-C 07/23/17 Cephalexin* (Keflex*) 500 Mg Capsule, 500 MG PO QID for 7 Days, CAP Prov:RAPHAEL FERREIRA PA-C 07/23/17 Amoxicillin/Potassium Clav (Amox-Clav 500-125 mg Tablet) 500-125 mg Tab, 1 TAB PO BID for 7 Days, #14 TAB Prov:GLADIS MCARTHUR 05/18/17 Loratadine/Pseudoephedrine* (Claritin-D* 12 Hr) 5-120 Mg Tab.er.12h, 1 TAB PO Q12, #60 TAB.SA Prov:GLADIS MCARTHUR 05/18/17 Meclizine Hcl* (Antivert*) 12.5 Mg Tab, 12.5 MG PO Q6H Y for DIZZINESS, #20 TAB Prov:ROMEL PATINO PA-C 03/10/17 Cephalexin* (Keflex*) 500 Mg Capsule, 500 MG PO TID for 7 Days, #21 CAP Prov:ROMEL PATINO PA-C 03/10/17 Prednisone* (Prednisone*) 20 Mg Tab, 40 MG PO DAILY for 4 Days, TAB Prov:NATHANIEL EDEN DO 03/08/17 Albuterol Sulfate* (Proair HFA*) 8.5 Gm Hfa.aer.ad, 2 PUFF INH Q4, #1 INHALER Prov:ELVIE MELO 02/23/17 Acetaminophen* (Tylophen*) 500 Mg Capsule, 1 CAP PO Q6H Y for PAIN AND OR ELEVATED TEMP, #20 CAP Prov:ELVIE MELO 02/23/17 Ibuprofen* (Motrin*) 800 Mg Tab, 800 MG PO Q8 Y for PAIN AND OR ELEVATED TEMP, # 30 TAB Prov:ELVIE MELO 02/23/17 Azithromycin* (Zithromax*) 250 Mg Tablet, 250 MG PO .ZPACK DIRECTED, #6 TAB TAKE 500 MG (2 TABS) THE FIRST DAY THEN 250 MG (1 TAB) DAYS 2-5 Prov:ELVIE MELO 02/23/17 Ranitidine Hcl* (Zantac*) 150 Mg Tablet, 150 MG PO BID Y for EPIGASTRIC PAIN, # 10 TAB Prov:ANMOL DEVI PA-C 10/11/16 Diphenhydramine Hcl* (Benadryl*) 25 Mg Cap, 25 MG PO Q6, #30 CAP Prov:ANMOL DEVI PA-C 10/11/16 Prednisone* (Prednisone*) 20 Mg Tab, 40 MG PO DAILY for 4 Days, TAB Prov:ANMOL DEVI PA-C 10/11/16 Aspirin (Aspirin) 81 Mg Chew, 81 MG PO DAILY for 30 Days, TAB Prov:TEREZA MCKENZIE 06/11/16 Gemfibrozil* (Gemfibrozil*) 600 Mg Tablet, 600 MG PO BID for 30 Days, TAB Prov:TEREZA MCKENZIE 06/11/16 Insulin Glargine* (Lantus*) 100 Unit/Ml Soln, 27 UNIT SC QAM for 30 Days Prov:TEREZA MCKENZIE 06/11/16 Insulin Aspart* (Novolog Insulin Pen*) 100 Unit/Ml Soln, 10 UNIT SC WITH MEALS for 30 Days Prov:TEREZA MCKENZIE 06/11/16 Reported Medications Metformin* (Glucophage*) 1,000 Mg Tablet, 1000 MG PO BID, TAB 06/09/16 Lisinopril* (Lisinopril*) 5 Mg Tablet, 5 MG PO DAILY, TAB 06/09/16 Allergies Allergies: Coded Allergies: No Known Allergy (Unverified , 05/18/17) PMhx/Soc History of Surgery: Yes (Gallblader, gallstones removed) Anesthesia Reaction: No Hx Neurological Disorder: No Hx Respiratory Disorders: Yes (asthma, bronchitis) Hx Cardiac Disorders: No Hx Psychiatric Problems: No Hx Miscellaneous Medical Probl: Yes (dm 2) Hx Alcohol Use: Yes (occasionally) Hx Substance Use: No Hx Tobacco Use: No Smoking Status: Never smoker Physical Exam Vitals Vital Signs Date Time Temp Pulse Resp B/P Pulse Ox O2 Delivery O2 Flow Rate FiO2 07/23/17 15:45 99.1 113 20 143/84 96 Physical Exam Const: [id number], well-nourished. In no acute distress. Head: Atraumatic, normocephalic Eyes: Normal Conjunctiva without injection. No purulent discharge. ENT: Normal external ear, nose. Moist oropharynx without tonsillar exudates. Non -erythematous pharynx. Uvula midline. No drooling. No trismus. Neck: No cervical midline tenderness. Full range of motion. No meningismus. No cervical lymphadenopathy. No JVD. Resp: Clear to auscultation bilaterally. No wheezing, rhonchi, rales, or crackles. No accessory muscle use. No retractions. Cardio: Regular rate and rhythm. No murmurs, rubs or gallops. Abd: Soft, nontender, non distended. Normal bowel sounds. No palpable masses. No rebound tenderness. No guarding. Negative McBurney's point. Negative psoas sign. Negative obturator sign. /Rectal: 4 x 4cm erythematous left labia majora with fluctuance and induration. No lymphatic streaking. No anal tenderness. No bleeding noted. No fissures. No external hemorrhoids. Skin: No petechiae or rashes Back: No midline tenderness. No CVA tenderness. Ext: No cyanosis, or edema. Neur: Awake and alert. Normal gait. Normal coordination. Psych: Normal Mood and Affect Results 24 hrs Current Medications Medications (Trade) Dose Ordered Sig/Sherita Route PRN Reason Start Time Stop Time Status Last Admin Dose Admin Lidocaine (Xylocaine 1% (Mdv) 20 ml) 20 ml ONCE ONCE SC 07/23/17 16:00 07/23/17 16:01 DC Procedures/MDM 47-year-old female patient with a past medical history diabetes presents to the ED complaining of abscess left side of her groin. Patient is afebrile and nontoxic-appearing. Patient normal vital signs. Patient gave consent to perform incision and drainage. 11 blade scalpel used to make a small incision. Abscess Incision and Drainage with irrigation by me: Location: Left labia majora/Bartholin Anesthesia: [5 cc Local 1% Lidocaine] Technique: [Irrigated. Disrupted loculations w/ instrumentation ] Packing: [None] Complications: [Neurovascularly intact post procedure] Copious purulent discharge drained from the abscess. Low suspicion perianal abscess, perirectal abscess, fistula, fissures, deep space infection, or other emergent conditions. Keflex and Bactrim was prescribed to patient. Instructed patient to return to the ED sooner for any worsening symptoms. Follow up with primary care physician or return to the ED in 2 days for a wound check. Patient's questions were answered. Patient understood and agreed with discharge plan. Departure Diagnosis: Primary Impression: Abscess Condition: Stable Patient Instructions: Abscess, Incision And Drainage, Bartholin's Cyst (I And D ) Referrals: [facility] (PCP) [facility] YOU HAVE RECEIVED A MEDICAL SCREENING EXAM AND THE RESULTS INDICATE THAT YOU DO NOT HAVE A CONDITION THAT REQUIRES URGENT TREATMENT IN THE EMERGENCY DEPARTMENT. FURTHER EVALUATION AND TREATMENT OF YOUR CONDITION CAN WAIT UNTIL YOU ARE SEEN IN YOUR DOCTORS OFFICE WITHIN THE NEXT 1-2 DAYS. IT IS YOUR RESPONSIBILITY TO MAKE AN APPOINTMENT FOR FOLOW-UP CARE. IF YOU HAVE A PRIMARY DOCTOR --you should call your primary doctor and schedule an appointment IF YOU DO NOT HAVE A PRIMARY DOCTOR YOU CAN CALL OUR PHYSICIAN REFERRAL HOTLINE AT IF YOU CAN NOT AFFORD TO SEE A PHYSICIAN YOU CAN CHOSE FROM THE FOLLOWING [facility] CLINICS [facility] [address] [facility]. [facility] [address] [facility]. [facility] [address] [facility] [facility] [address] [facility] [address] [facility]. [facility]. [address] [facility] [facility] YOU HAVE RECEIVED A MEDICAL SCREENING EXAM AND THE RESULTS INDICATE THAT YOU DO NOT HAVE A CONDITION THAT REQUIRES URGENT TREATMENT IN THE EMERGENCY DEPARTMENT. FURTHER EVALUATION AND TREATMENT OF YOUR CONDITION CAN WAIT UNTIL YOU ARE SEEN IN YOUR DOCTORS OFFICE WITHIN THE NEXT 1-2 DAYS. IT IS YOUR RESPONSIBILITY TO MAKE AN APPOINTMENT FOR FOLOW-UP CARE. IF YOU HAVE A PRIMARY DOCTOR --you should call your primary doctor and schedule and appointment IF YOU DO NOT HAVE A PRIMARY DOCTOR YOU CAN CALL OUR PHYSICIAN REFERRAL HOTLINE AT . IF YOU CAN NOT AFFORD TO SEE A PHYSICIAN YOU CAN CHOSE FROM THE FOLLOWING FORMER[facility], [facility]–1983 INSTITUTIONS: [facility] [address] [place] [address] [facility] [address] [place] [address] [facility] [address] [place] [address] [facility] URGENT CARE/SPECIALTIES Additional Instructions: Call your primary care doctor TOMORROW for an appointment during the next 2-3 days.See the doctor sooner or return here if your condition worsens before your appointment time. Follow up in 2 days in your clinic for wound check. RAPHAEL FERREIRA PA-C Jul 23, 2017 18:19
== END 2017-07-23 17:56 | disposition home or self-care (01) ==
LOC: FTE 15:41
DX: N76.4 Abscess of vulva (principal); J45.909 Unspecified asthma, uncomplicated; E11.9 Type 2 diabetes mellitus without complications; Z79.4 Long term (current) use of insulin; Z79.82 Long term (current) use of aspirin; Z79.84 Long term (current) use of oral hypoglycemic drugs
CPT/HCPCS: 56405; Z7502; Z7610

== ENCOUNTER 2017-07-25 09:05 | Emergency (ER) | payer OTHER ==
[~2017-07-25] VITALS: Wt 102.8 kg
[~2017-07-25 09:05] MED LIST changes: +IBUP-1542 PO; +SULF1TAB31 PO
--- NOTE | 2017-07-25 10:38 | ERD ---
ER Documentation Chief Complaint Chief Complaint wound recheck HPI 47-year-old female comes in with a wound check for a left-sided groin abscess that was incised and drained 2 days ago. The patient states that she has been trying to apply warm water, at this time she does not have a sitz bath at home. She has been taking antibiotics and doing well. She has not had any fevers or chills. She reports that there is some drainage that is clear to reddish color, no longer reports any purulent drainage. ROS All systems reviewed and are negative except as per history of present illness. Medications Home Meds Active Scripts Ibuprofen* (Motrin*) 600 Mg Tab, 600 MG PO Q6, #30 TAB Prov:RAPHAEL FERREIRA PA-C 07/23/17 Sulfamethoxazole/Trimethoprim* (Bactrim Ds* Tablet) 1 Each Tablet, 1 TAB PO BID for 7 Days, #14 TAB Prov:RAPHAEL FERREIRA PA-C 07/23/17 Cephalexin* (Keflex*) 500 Mg Capsule, 500 MG PO QID for 7 Days, CAP Prov:RAPHAEL FERREIRA PA-C 07/23/17 Amoxicillin/Potassium Clav (Amox-Clav 500-125 mg Tablet) 500-125 mg Tab, 1 TAB PO BID for 7 Days, #14 TAB Prov:GLADIS MCARTHUR 05/18/17 Loratadine/Pseudoephedrine* (Claritin-D* 12 Hr) 5-120 Mg Tab.er.12h, 1 TAB PO Q12, #60 TAB.SA Prov:GLADIS MCARTHUR 05/18/17 Meclizine Hcl* (Antivert*) 12.5 Mg Tab, 12.5 MG PO Q6H Y for DIZZINESS, #20 TAB Prov:ROMEL PATINO PA-C 03/10/17 Cephalexin* (Keflex*) 500 Mg Capsule, 500 MG PO TID for 7 Days, #21 CAP Prov:ROMEL PATINO PA-C 03/10/17 Prednisone* (Prednisone*) 20 Mg Tab, 40 MG PO DAILY for 4 Days, TAB Prov:NATHANIEL EDEN DO 03/08/17 Albuterol Sulfate* (Proair HFA*) 8.5 Gm Hfa.aer.ad, 2 PUFF INH Q4, #1 INHALER Prov:ELVIE MELO 02/23/17 Acetaminophen* (Tylophen*) 500 Mg Capsule, 1 CAP PO Q6H Y for PAIN AND OR ELEVATED TEMP, #20 CAP Prov:ELVIE MELO 02/23/17 Ibuprofen* (Motrin*) 800 Mg Tab, 800 MG PO Q8 Y for PAIN AND OR ELEVATED TEMP, # 30 TAB Prov:ELVIE MELO 02/23/17 Azithromycin* (Zithromax*) 250 Mg Tablet, 250 MG PO .ZPACK DIRECTED, #6 TAB TAKE 500 MG (2 TABS) THE FIRST DAY THEN 250 MG (1 TAB) DAYS 2-5 Prov:ELVIE MELO 02/23/17 Ranitidine Hcl* (Zantac*) 150 Mg Tablet, 150 MG PO BID Y for EPIGASTRIC PAIN, # 10 TAB Prov:ANMOL DEVI PA-C 10/11/16 Diphenhydramine Hcl* (Benadryl*) 25 Mg Cap, 25 MG PO Q6, #30 CAP Prov:ANMOL DEVI PA-C 10/11/16 Prednisone* (Prednisone*) 20 Mg Tab, 40 MG PO DAILY for 4 Days, TAB Prov:ANMOL DEVI PA-C 10/11/16 Aspirin (Aspirin) 81 Mg Chew, 81 MG PO DAILY for 30 Days, TAB Prov:TEREZA MCKENZIE 06/11/16 Gemfibrozil* (Gemfibrozil*) 600 Mg Tablet, 600 MG PO BID for 30 Days, TAB Prov:TEREZA MCKENZIE 06/11/16 Insulin Glargine* (Lantus*) 100 Unit/Ml Soln, 27 UNIT SC QAM for 30 Days Prov:TEREZA MCKENZIE 06/11/16 Insulin Aspart* (Novolog Insulin Pen*) 100 Unit/Ml Soln, 10 UNIT SC WITH MEALS for 30 Days Prov:TEREZA MCKENZIE 06/11/16 Reported Medications Metformin* (Glucophage*) 1,000 Mg Tablet, 1000 MG PO BID, TAB 06/09/16 Lisinopril* (Lisinopril*) 5 Mg Tablet, 5 MG PO DAILY, TAB 06/09/16 Allergies Allergies: Coded Allergies: No Known Allergy (Unverified , 05/18/17) PMhx/Soc History of Surgery: Yes (Gallblader, gallstones removed) Anesthesia Reaction: No Hx Neurological Disorder: No Hx Respiratory Disorders: Yes (asthma, bronchitis) Hx Cardiac Disorders: No Hx Psychiatric Problems: No Hx Miscellaneous Medical Probl: Yes (dm 2) Hx Alcohol Use: Yes (occasionally) Hx Substance Use: No Hx Tobacco Use: No Smoking Status: Never smoker Physical Exam Vitals Vital Signs Date Time Temp Pulse Resp B/P Pulse Ox O2 Delivery O2 Flow Rate FiO2 07/25/17 09:31 98.9 107 20 142/72 95 Physical Exam General: Well-developed, well-nourished. The patient appears in no acute distress. HEENT: Head is normocephalic, atraumatic. No scleral icterus. Neck: Supple. Nontender. Lungs: Clear to auscultation. Normal air movement. Heart: Regular rate and rhythm. S1 and S2 are normal. No murmurs, gallops, or rubs. Abdomen: Nondistended. Extremities: No clubbing or cyanosis. Moving extremities x 4. No weakness. Neurologic: Alert and oriented 3. No focal deficits. Normal speech and gait. Skin: 1 cm incision lateral inferior to the left labia majora. The incision is clean, there is no surrounding erythema, no drainage. There is a surrounding area of approximately 3 cm of induration. There is no lymphatic streaking. Procedures/MDM 47-year-old female comes in status post incision and drainage for a left groin abscess. The wound appears to be clean, without any continuing cellulitis, signs of deep space infection or tracking. She is to continue antibiotics, advised to do warm compresses 3-4 times a day. Return for any worsening symptoms including fever or drainage. Departure Diagnosis: Primary Impression: Encounter for wound re-check Additional Impression: Abscess Condition: Good Patient Instructions: Wound Care, Abscess, Incision And Drainage ANMOL DEVI PA-C Jul 25, 2017 10:38
== END 2017-07-25 10:42 | disposition home or self-care (01) ==
LOC: FTE 09:05
DX: Z48.01 Encounter for change or removal of surgical wound dressing (principal); J45.909 Unspecified asthma, uncomplicated; E11.9 Type 2 diabetes mellitus without complications; Z79.4 Long term (current) use of insulin; Z79.82 Long term (current) use of aspirin; Z79.84 Long term (current) use of oral hypoglycemic drugs
CPT/HCPCS: 99281

== ENCOUNTER 2018-03-31 18:27 | Emergency (ER) | END 2018-03-31 22:18 | disposition home or self-care (01) ==

== ENCOUNTER 2018-06-05 20:30 | Emergency (ER) | END 2018-06-05 22:05 | disposition left against medical advice (07) ==

== ENCOUNTER 2018-06-06 18:48 | Emergency (ER) | END 2018-06-06 21:19 | disposition home or self-care (01) ==